=== PATIENT | female | born 2000 | race Caucasian/White ===

== ENCOUNTER 2018-06-11 00:47 | Outpatient (CLI) | payer OTHER, SELFPAY ==
--- NOTE | 2018-06-11 07:29 | DI.US_ITS ---
SYMPTOM/DIAGNOSIS: RUQ ABD PAIN, R10.11 ABDOMINAL ULTRASOUND: The aorta and vena cava are normal. There is some increased echogenicity in the liver suggesting the possibility of fatty infiltration. The patient is status post cholecystectomy. There is a 9 mm common duct likely dilated on the basis of the patient's prior surgery. The pancreas is poorly visualized due to bowel gas and the patient's body habitus. The spleen is mildly enlarged with a maximal diameter of 12.3 cm. The kidneys are unremarkable. The right kidney measuring 11 cm and the left kidney 11.8 cm. There is no evidence of abdominal free fluid. There is no evidence of a soft tissue mass or hernia in the right upper quadrant. SUMMARY: There is mild splenomegaly and probable fatty infiltration of the liver. The examination is otherwise unremarkable.
== END 2018-06-11 01:07 ==
PROVIDERS: PCP Family Medicine; Visit Provider Family Medicine
DX: R10.11 Right upper quadrant pain (principal); R16.1 Splenomegaly, not elsewhere classified; K76.0 Fatty (change of) liver, not elsewhere classified; Z90.49 Acquired absence of other specified parts of digestive tract
CPT/HCPCS: 76700

== ENCOUNTER 2018-06-28 02:21 | Outpatient (CLI) | payer OTHER, SELFPAY ==
--- NOTE | 2018-06-28 08:26 | DI.CT_ITS ---
SYMPTOMS/DIAGNOSIS: PERIUMBILICAL PAIN, ? MASS VS HERNIA, US DONE, R10.[address]: CT examination of the abdomen and pelvis was performed with a bolus infusion of 100 cc's of Omnipaque 350 and ingestion of dilute barium. Images obtained through the lung bases are unremarkable. Note is made of previous cholecystectomy. The liver, spleen and pancreas appear intact. No biliary dilatation seen. There is reportedly a clinical question of umbilical hernia or mass. There is no significant umbilical hernia identified. Mild thickening of the tissues superficially in the region of the umbilicus is noted with no underlying mass. No abdominal wall hernia identified elsewhere. No abdominal or pelvic adenopathy. The abdominal aorta is of normal diameter and no major vascular abnormality is seen. The adrenals and kidneys appear normal. The appendix is normal. No evidence of diverticulitis or bowel obstruction. The [employer] structures appear normal. CONCLUSION: Negative abdominal and pelvic CT. No evidence of umbilical hernia.
[2018-06-28] MEDS: Breeza Beverage 473 ML BTL PO ×2 (08:40→08:41)
[2018-06-28] MEDS: Omnipaque 350 MG/ML 100 ML BTL IV (10:11)
== END 2018-06-28 02:41 ==
PROVIDERS: PCP Family Medicine; Visit Provider Surgery
DX: R10.33 Periumbilical pain (principal)
CPT/HCPCS: 74177; J3490